=== PATIENT | male | born 1960 | race Two or more races ===

== ENCOUNTER 2021-09-26 09:45 | Inpatient (IN) | payer OTHER ==
[~2021-09-26] VITALS: Ht 180.3 cm; Wt 72.6 kg
[2021-09-26] MEDS ORDERED: CREON DR 36,001 EACH PO (14:05)
[2021-09-26] MEDS ORDERED: PROTONIX40 M1 PO (14:06)
[2021-09-26] MEDS ORDERED: METFORMIN HCL1000 M2 PO (14:06)
== END 2021-10-05 16:10 | disposition home or self-care (01) | DRG 331 ==
LOC: SURH 10-01 09:45 → SURG 10-01 09:50 → O/R 10-01 09:50 → SURH 10-01 15:30 → SURG 10-01 17:47
PROVIDERS: ADMIT Colon & Rectal Surgery; ATTEND Colon & Rectal Surgery
PROC: 0DTP4ZZ Resection of Rectum, Percutaneous Endoscopic Approach (ICD-10-PCS; 2021-10-01)
PROC: 0DTQ4ZZ Resection of Anus, Percutaneous Endoscopic Approach (ICD-10-PCS; 2021-10-01)
PROC: 07BC4ZZ Excision of Pelvis Lymphatic, Percutaneous Endoscopic Approach (ICD-10-PCS; 2021-10-01)
PROC: 0D1N4Z4 Bypass Sigmoid Colon to Cutaneous, Percutaneous Endoscopic Approach (ICD-10-PCS; 2021-10-01)
PROC: 0DTN4ZZ Resection of Sigmoid Colon, Percutaneous Endoscopic Approach (ICD-10-PCS; principal; 2021-10-01 15:30)
DX: C19 Malignant neoplasm of rectosigmoid junction (principal); E11.9 Type 2 diabetes mellitus without complications; Z79.4 Long term (current) use of insulin; I10 Essential (primary) hypertension; I34.1 Nonrheumatic mitral (valve) prolapse; K21.9 Gastro-esophageal reflux disease without esophagitis; Z85.048 Personal history of other malignant neoplasm of rectum, rectosigmoid junction, and anus

== ENCOUNTER 2021-10-07 15:46 | Inpatient (IN) | payer OTHER ==
[~2021-10-07] VITALS: Ht 177.8 cm; Wt 70.3 kg
[~2021-10-07 15:46] MED LIST: CREON DR 36,001 EACH PO; METFORMIN HCL1000 M2 PO; PROTONIX40 M1 PO
== END 2021-10-12 12:17 | disposition home or self-care (01) | DRG 389 ==
LOC: ER 15:46 → SURG 19:22
PROVIDERS: ADMIT Colon & Rectal Surgery; ATTEND Colon & Rectal Surgery
PROC: BW21YZZ Computerized Tomography (CT Scan) of Abdomen and Pelvis using Other Contrast (ICD-10-PCS; 2021-10-07)
PROC: 02HV33Z Insertion of Infusion Device into Superior Vena Cava, Percutaneous Approach (ICD-10-PCS; principal; 2021-10-08)
DX: K56.699 Other intestinal obstruction unspecified as to partial versus complete obstruction (principal); C20 Malignant neoplasm of rectum; C61 Malignant neoplasm of prostate; K59.09 Other constipation; K21.9 Gastro-esophageal reflux disease without esophagitis; E11.9 Type 2 diabetes mellitus without complications; I10 Essential (primary) hypertension; I34.1 Nonrheumatic mitral (valve) prolapse; Z20.822 Contact with and (suspected) exposure to COVID-19; Z79.4 Long term (current) use of insulin; Z93.3 Colostomy status

== ENCOUNTER 2023-07-30 16:57 | Inpatient (IN) | payer OTHER ==
[~2023-07-30] VITALS: Ht 180.3 cm; Wt 139.7 kg
[2023-07-30] MEDS ORDERED: COZAAR25 MG PO (17:06)
[2023-07-30 17:47] LABS: HEMATOCRIT 29.4 % (39.0-48.0); HEMOGLOBIN 9.9 g/dL (13-16.00); MEAN CELL VOLUME 95.5 fL (80.0-100.00); MEAN CORPUSCULAR HEMOGLOBIN 32.1 pg (27.00-32.0); MEAN CORPUSCULAR HGB CONC 33.6 g/dl (32.0-36.0); PLATELET COUNT 394 K/uL (150-450); RED BLOOD COUNT 3.08 M/uL (4.00-6.00); RED CELL DISTRIBUTION WIDTH 13.5 % (11.5-14.5)
[2023-07-30 18:10] LABS: INR 1.42; PARTIAL THROMBOPLASTIN TIME 26.2 SECONDS (22.0-34.0); PROTHROMBIN TIME 14.5 SECONDS (9.0-11.5)
[2023-07-30 18:11] LABS: ALBUMIN 2.5 gm/dL (3.4-5.0); ALKALINE PHOSPHATASE 365 U/L (50-136); ALT/SGPT 52 U/L (12-78); AMYLASE 29 U/L (25-115); ANION GAP 12 (10.0-20.0); AST/SGOT 90 U/L (15-37); BILIRUBIN TOTAL 0.53 mg/dL (0.3-1.2); BILIRUBIN,CONJUGATED 0.22 mg/dL (0.0-0.2); BILIRUBIN,UNCONJUGATED 0.31 mg/dL (0.0-0.6); BLOOD UREA NITROGEN 31 mg/dL (7-18); BUN CREA RATIO 30 (7.0-25.0); CALCIUM 8.3 mg/dL (8.5-10.1); CARBON DIOXIDE 26 mEq/L (21-32); CHLORIDE 106 mmol/L (98-107); CREATININE SERUM 1.02 mg/dL (0.70-1.30); GLOBULINA 4.7 G/DL (2.4-3.5); GLUCOSE FASTING 100 mg/dL (65-100); OSMOLALITY SERUM 284 MOSM/KG (275-295); POTASSIUM 4.99 mEq/L (3.5-5.1); SODIUM 139 mmol/L (136-145); TOTAL PROTEIN 7.2 gm/dL (6.4-8.2)
[2023-07-30 18:19] LABS: LIPASE < 6 U/L (13-75)
[2023-08-03 10:13] LABS: CALCIUM 8.4 mg/dL (8.5-10.1); CREATININE SERUM 0.97 mg/dL (0.70-1.30); GFR 78.42; POTASSIUM 4.86 mEq/L (3.5-5.1)
[2023-08-05 14:50] LABS: CHOL HDL RATIO 5.5 (0-5.0); CREATININE SERUM 1.06 mg/dL (0.70-1.30); GFR 70.79; POTASSIUM 4.21 mEq/L (3.5-5.1)
[2023-08-06] MEDS ORDERED: POLY119PG PO (10:06)
== END 2023-08-06 11:39 | disposition home or self-care (01) | DRG 390 ==
LOC: ER 16:57 → SEC-K 17:45 → SURG 17:45
PROVIDERS: General Practice; Surgery; ADMIT Colon & Rectal Surgery; ATTEND Colon & Rectal Surgery
PROC: 0D9670Z Drainage of Stomach with Drainage Device, Via Natural or Artificial Opening (ICD-10-PCS; 2023-07-30)
PROC: 02HV33Z Insertion of Infusion Device into Superior Vena Cava, Percutaneous Approach (ICD-10-PCS; 2023-08-01)
PROC: BW21ZZZ Computerized Tomography (CT Scan) of Abdomen and Pelvis (ICD-10-PCS; principal; 2023-08-03)
DX: K56.699 Other intestinal obstruction unspecified as to partial versus complete obstruction (principal); I10 Essential (primary) hypertension; Z85.048 Personal history of other malignant neoplasm of rectum, rectosigmoid junction, and anus